=== PATIENT | female | born 1980 | race Caucasian/White ===

== ENCOUNTER → 2024-07-15 | Outpatient (CLI) | payer OTHER, SELFPAY ==
--- NOTE | 2024-07-15 14:38 | RAD_ITS ---
PROCEDURE: CHEST PA AND LATERAL 07/15/2024 REASON FOR EXAM: ANTERIOR SCLERITIS TECHNIQUE: Single view chest with supine and upright views of the abdomen. FINDINGS: The cardiac silhouette is within normal limits. No focal infiltrate or consolidation is seen within the lungs. No pneumothorax. No acute osseous abnormality seen. RAD/Chest PA and Lateral IMPRESSION: No focal infiltrate or consolidation. No pneumothorax. Reading Location: [id number]
[2024-07-15 14:58] LABS: Bacteria 0 SEEN /hpf (None Seen); Mucous, Urine 0 SEEN /hpf (<or=2+); White Blood Cells 0 SEEN /hpf (0-5)
[2024-07-15 18:00] LABS: Color, Urine Yellow (Yellow); Glucose, Dipstick Normal (Normal); Ketone-Dipstick Negative (Negative); Leukocyte Esterase-Dipstick Negative /ul (Negative); Nitrite-Dipstick Negative (Negative); Occult Blood-Urine Negative /ul (Negative); Protein-Dipstick 15 mg/dl (Negative); Urine Bilirubin Dipstick Negative (Negative); Urine Clarity Sl. Cloudy (Clear); Urine Urobilinogen Normal (Normal)
[2024-07-15 18:02] LABS: Absolute Lymphocyte Count 1.43 X10^3/uL (0.83-4.51); Absolute Neutrophil Count 4.8 X10^3/uL (2.0-7.7); Basophil# 0.04 X10^3/uL; Basophil% 0.6 % (0-1); Eosinophil# 0.08 X10^3/uL; Eosinophils% 1.2 % (0-5); Hematocrit 41.4 % (37-47); Hemoglobin 13.6 g/dL (12.0-15.0); Lymphocyte # 1.43 X10^3/ul (0.83-4.51); Lymphocyte % 20.9 % (19-41); Mean Corp Hgb Conc 32.9 g/dL (32-36); Mean Corpuscular Hgb 28.8 pg (27.0-32.0); Mean Corpuscular Volume 87.7 fL (81-99); Mean Platelet Vol. 9.6 fl (6.2-12.0); Monocyte# 0.45 X10^3/uL; Monocyte% 6.6 % (0-10); NRBC Flagged by Analyzer 0 % (0-5); Neutrophil # 4.83 X10^3/uL (2.7-7.7); Neutrophil % 70.4 % (47-70); Platelet Count 378 K/mm3 (150-450); RBC Distribution Width SD 41.9 fl (35.1-43.9); Red Blood Count 4.72 M/mm3 (4.2-5.4); White Blood Count 6.9 K/mm3 (4.4-11.0)
[2024-07-15 18:15] LABS: Erythrocyte Sedimentation Rate 8 mm/hr (0-30)
[2024-07-15 19:07] LABS: Red Blood Cells-Urine 0 SEEN /hpf (0-5)
[2024-07-15 19:08] LABS: Squamous Epithelial Cells - UA 0-5 SEEN /hpf (5-10)
[2024-07-15 19:12] LABS: Syphilis Antibodies Nonreactive (Nonreactive)
[2024-07-15 19:17] LABS: CRP < 3.00 mg/L (0.0-3.0); Rheumatoid Factor < 10.0 IU/mL (<15)
== END | disposition home or self-care (01) ==
LOC: MTLAB 14:33
PROVIDERS: Referring Provider Ophthalmology; Visit Provider Ophthalmology
DX: H15.011 Anterior scleritis, right eye (principal)
CPT/HCPCS: 36415; 71046; 81001; 81374; 82164; 85025; 85652; 86037; 86038; 86140; 86200; 86431; 86480; 86780